=== PATIENT | female | born 1950 | race Caucasian/White ===

== ENCOUNTER → 2018-06-04 | Emergency (ER) | payer OTHER ==
[~2018-06-04] VITALS: Ht 160 cm; Wt 99.8 kg
[~2018-06-04] MED LIST: LEVSIN/SL0.125 MG PO; SYNTHROID75 MCG
== END | disposition home or self-care (01) ==
LOC: ER 17:17
DX: K57.32 Diverticulitis of large intestine without perforation or abscess without bleeding (principal); R10.84 Generalized abdominal pain

== ENCOUNTER 2021-12-19 16:02 | Inpatient (IN) | payer OTHER ==
[~2021-12-19] VITALS: Ht 160 cm; Wt 82.1 kg
[2021-12-19] MEDS ORDERED: SYNTHROID100 MCG PO (16:47)
[2021-12-19] MEDS ORDERED: COZAAR25 MG PO (16:47)
[2021-12-19] MEDS ORDERED: CRESTOR10 MG PO (16:48)
--- NOTE | 2021-12-19 16:49 | NUR ---
SE RECIBE PTE ALERTA Y ORIENTADA X3. REFIERE DOLOR ABDOMINAL LOWER QUADRANTS DESDE EL . INDICA NO THOMPSON EVACUADO HACE 3 ALBA Y SENTIR DISTENSION ABDOMINAL. INDICA LOS PASADOS DOS ALBA ESTUVO DESGANADA Y TEME SEA DIVERTICULITIS. AL MOMENTO DE TRIAGE T 100.8. SE MONITOREAN S/V Y SE UBICA PTE.
--- NOTE | 2021-12-19 17:46 | NUR ---
EVALUA PTE. SE EDUCA A PTE SOBRE [place] MEDICO. PTE REFIERE COMPRENDER. SE REALIZAN MUESTRAS DE LABORATORIO BAJO MEDIDAS ASEPTICAS. SE ADMINISTRAN MEDICAMENTOS QUINTON ORDEN MEDICA. SE NOTIFICA CT.
[2021-12-23] MEDS ORDERED: HYOSCYAMINE0.125 M1 (11:43)
[2021-12-23] MEDS ORDERED: OMEPRAZOLE20 MG (11:44)
[2021-12-24] MEDS ORDERED: CIPRO500 MG PO (15:21)
[2021-12-24] MEDS ORDERED: METRONIDAZOLE500 MG PO (15:21)
[2021-12-24] MEDS ORDERED: INTESTINEX680 M1 PO (15:21)
== END 2021-12-24 16:14 | disposition home or self-care (01) | DRG 392 ==
LOC: ER 16:02 → SEC-K 23:41 → SURH 12-20 02:17
PROVIDERS: ADMIT Internal Medicine; ATTEND Internal Medicine
PROC: BW21YZZ Computerized Tomography (CT Scan) of Abdomen and Pelvis using Other Contrast (ICD-10-PCS; principal; 2021-12-19)
DX: K57.32 Diverticulitis of large intestine without perforation or abscess without bleeding (principal); R10.32 Left lower quadrant pain; I10 Essential (primary) hypertension; E03.8 Other specified hypothyroidism; E78.49 Other hyperlipidemia

== ENCOUNTER 2022-04-20 09:30 | Inpatient (IN) | payer OTHER ==
[~2022-04-20] VITALS: Ht 160 cm; Wt 81.6 kg
[~2022-04-20 09:30] MED LIST changes: +CIPRO500 MG PO; +COZAAR25 MG PO; +CRESTOR10 MG PO; +HYOSCYAMINE0.125 M1; +INTESTINEX680 M1 PO; +METRONIDAZOLE500 MG PO; +OMEPRAZOLE20 MG; +SYNTHROID100 MCG PO
[2022-04-23] MEDS ORDERED: CIPROFLOXACIN500 MG (08:21)
[2022-04-23] MEDS ORDERED: METRONIDAZOLE500 MG (08:21)
[2022-04-26] MEDS ORDERED: HYOSCYAMINE0.125 M1 SL (13:37)
[2022-04-26] MEDS ORDERED: OXYC1TAB9 PO (13:38)
[2022-04-26] MEDS ORDERED: INTESTINEX680 M1 PO (13:39)
== END 2022-04-26 13:46 | disposition home or self-care (01) | DRG 331 ==
LOC: O/R 04-23 05:46 → SURH 04-23 05:46 → SURG 04-23 09:30 → O/R 04-23 15:38 → SURH 04-23 16:23
PROVIDERS: ADMIT Surgery; ATTEND Surgery
PROC: 0DBP4ZZ Excision of Rectum, Percutaneous Endoscopic Approach (ICD-10-PCS; 2022-04-23)
PROC: 0DJD8ZZ Inspection of Lower Intestinal Tract, Via Natural or Artificial Opening Endoscopic (ICD-10-PCS; 2022-04-23)
PROC: 0DTN4ZZ Resection of Sigmoid Colon, Percutaneous Endoscopic Approach (ICD-10-PCS; principal; 2022-04-23 10:15)
DX: K57.32 Diverticulitis of large intestine without perforation or abscess without bleeding (principal); K66.0 Peritoneal adhesions (postprocedural) (postinfection); R10.9 Unspecified abdominal pain; R19.4 Change in bowel habit; Z20.822 Contact with and (suspected) exposure to COVID-19; I10 Essential (primary) hypertension; E03.9 Hypothyroidism, unspecified; E78.49 Other hyperlipidemia